=== PATIENT | female | born 1930 | race African-American/Black ===

== ENCOUNTER 2019-12-18 17:23 | Emergency (ER) | payer SELFPAY ==
[~2019-12-18] VITALS: Ht 160 cm; Wt 34.0 kg
[~2019-12-18 17:23] MED LIST: CALCIUM GLUCONATE 10% 1000 MG/10 ML VIAL ONE; EPINEPHrine PFS 0.1 MG/ML SYR IVP ONE
--- NOTE | 2019-12-18 17:23 | NUR ---
CPR INITIATED, SEE CODE BLUE SHEET
--- NOTE | 2019-12-18 17:23 | NUR ---
1721---Patient CECELIA in full arrest with CPR in progress, transferred to bed 10. CPR continued by [facility] staff. Dr. Evans, RT and RN evaluating the patient at bedside.
--- NOTE | 2019-12-18 17:25 | NUR ---
PT WAS IN [employer] IN CAR WITH FAMILY WHO WITNESSED PATIENT SLUMP OVER AND DIALED 911
--- NOTE | 2019-12-18 17:49 | NUR ---
Santi Valencia--son in law [phone]
--- NOTE | 2019-12-18 18:02 | NUR ---
[employer] CONTACTED, THEY WILL NOT PURSUE [phone]
--- NOTE | 2019-12-18 18:04 | NUR ---
MARKETING RESEARCHER CONTACTED, THEY WILL RECONTACT
--- NOTE | 2019-12-18 19:15 | NUR ---
RECIEVED REPORT FROM ZANDRA LAY. WILL CONT CARE AT THIS TIME.
--- NOTE | 2019-12-18 19:19 | NUR ---
SPOKE WITH LANDON FROM [facility] OFFICE, SHE STATES SHE CANNOT PROCEED WITH CASE WITHOUT ANY "NEXT OF KIN" OR FAMILY INFORMATION. SHE WAS INSTRUCTED TO REACH OUT TO SON-IN-LAW, INFORMATION WAS PROVIDED. WILL RE-CONTACT
--- NOTE | 2019-12-18 19:45 | NUR ---
CONTACTED Santi Valencia--son in law ([phone]) 3X OVER THE PHONE AND NO ANSWER. LEFT VOICEMAIL TO CALL BACK.
--- NOTE | 2019-12-18 21:07 | NUR ---
Santi Valencia--son in law CALLED BACK, SANTI SAYS HE IS UNABLE TO GET A HOLD OF ANY FAMILY MEMBERS FROM HIS SIDE AND HIS IS UNFORUTNATELY IN THE [facility] AT [facility] D/T STROKE AND HER RELATION TO THE PT IS THATS HER DAUGHTER. DAUGHTER IS UNABLE TO COMMUNICATE D/T HAVING A STROKE. NO OTHER CONTACT INFO TO BE REACHED FOR DECSION MAKING OR NEXT OF KIN AT THIS TIME. SANTI SAID HES GOING TO TRY AND CONTACT GRANDSON TO SEE IF THERES ANYONE HE CAN FIND TO MAKE DECISIONS.
--- NOTE | 2019-12-18 21:22 | NUR ---
handed off information to [employer], Shalini. all resources exhausted and he stated will try to retrieve more information from the son in law.
--- NOTE | 2019-12-18 21:42 | NUR ---
Called Son In Law [phone], spoke to him. Ask Son In Law if pt has another family members who can help to take care of the diceased patient; Son In Law stated that only the can do it, but the is in [facility] and cannot give any information at this time. Son In Law stated there is family member lives in [place], and Son In Law does not have any contact information. Son In Law is a little bit angry, and stated not to call him all the time because only the can give the information
--- NOTE | 2019-12-18 21:56 | NUR ---
s/w Sheriff Robles, stated Sales And Marketing Engineer will be giving a call back.
--- NOTE | 2019-12-18 22:18 | NUR ---
s/w Christina, Currency Counter. told her that we have tried all resources and tried contacting the son-in-law and that he would not release any contact information regarding family members of the . Christina stated she will contact her sergeant regarding this case to see what they could do. stated they will call back.
--- NOTE | 2019-12-18 23:18 | NUR ---
Mary Valencia, Daughter
--- NOTE | 2019-12-18 23:18 | NUR ---
s/w Radha Vasquezer, cherry to [place] [facility]
--- NOTE | 2019-12-18 23:36 | NUR ---
attempted to call daughter x 2, no answer, left voicemail .
--- NOTE | 2019-12-19 00:19 | NUR ---
body placed in freezer. pt chart handed off to supervisor type photography,
--- NOTE | 2019-12-19 08:05 | NUR ---
CALL PLACE TO SHAUNNA IS/IT PROJECT MANAGER, FOR ADVISED, SHAUNNA GAVE MU NUMBER OF [facility], WILL FOLLOW [phone]
--- NOTE | 2019-12-19 10:48 | NUR ---
CALL PLACE TO SON IN LAW [phone], LEAVE MESSAGE TO CALL US BACK REGARDING MORTUARY.
--- NOTE | 2019-12-19 10:57 | NUR ---
CALL PLACE ALSO TO NUMBER [phone]
--- NOTE | 2019-12-19 10:58 | NUR ---
CALL PLACE TO [phone] PHONE DISCONNECTED.
--- NOTE | 2019-12-19 11:01 | NUR ---
CALL PLACE ALSO TO HELENAUNDREA OLIVAS DAUGHTER [phone] NO ANSWER
--- NOTE | 2019-12-19 11:07 | NUR ---
ABLE TO TALK TO TALK TO SON IN LAW ,ASKING PERMISSION IF I CAN SEND THE BODY TO [facility] OR OTHER MORTUARY, PER SON IN LAW HE CANNOT DECIDE ON THAT AND THAT HE WILL CALL ME BACK TO GET SOME INFORMATION. I ALSO ASK FOR OTHER FAMILY NAME AND NUMBER.
--- NOTE | 2019-12-19 12:21 | NUR ---
TALK TO SON IN LAW, HE SAID THAT STILL HE HAS NO INFORMATION REGARDING THE FAMILY OF THE PATIENT FROM [place], HIS IS IN [place] ICU AND HAD STROKE AND NOT IN GOOD STATE OF MIND, PER SON IN LAW PATIENT JUST CAME BACK FROM [place] YESTERDAY. HE SAID CALL THE GUSSET MAKER AND DO WHAT YOU NEED TO DO.
--- NOTE | 2019-12-19 12:27 | NUR ---
LEFT MESSAGE TO BRETT PRINGLE [facility] FOR ASSISTANCE,
--- NOTE | 2019-12-19 12:28 | NUR ---
LEFT MESSAGE TO SHAUNNA INDUSTRIAL ENERGY ENGINEER TO FOLLOW UP WITH [facility].
--- NOTE | 2019-12-19 12:38 | NUR ---
CALL PLACE TO LESLIE DEL ANGEL TALKED TO CESAR TO SUPERVISOR IRRIGATION THE BODY, PER CESAR SHE WILL GET IN TOUCH WITH THE FAMILY FIRST AND WILL LET ME KNOW.
--- NOTE | 2019-12-19 13:05 | NUR ---
TALKED TO VIOLETTE, GRAND DAUGHTER, , I GAVE HER THE NUMBER OF [facility] AND SHE WILL CALL US BACK.
--- NOTE | 2019-12-19 15:03 | NUR ---
TALKED TO VIOLETTE, SHE SAID THE MORTUARY WILL BE [facility] [phone], I CALL [facility] I SPOKE TO CHANNEL, SHE WILL CALL ME BACK WHEN BODY CAN BE STITCHING MACHINE OPERATOR.
--- NOTE | 2019-12-19 15:06 | NUR ---
CALL PLACE TO [facility] OFFICE, MADE AWARE WE WERE ABLE TO GET IN TOUCH WITH FAMILY , NO NEED OF FOLLOW UP.
--- NOTE | 2019-12-19 17:40 | NUR ---
talked to channel, she said she will call us back for the ETA for medicinal plant picker of body, will endorsed to incoming shift
--- NOTE | 2019-12-19 20:46 | NUR ---
BODY PICKED UP BY [facility] AT THIS TIME, SECURITY ACCOMPANIED MORTICIAN AT THE TRAILER TO CHILLER TENDER THE BODY. UPPER AND LOWER DENTURES AND BRACELET ENDORSED TO THE MORTICIAN..
== END 2019-12-18 17:28 | disposition expired ==
LOC: MED 17:23 → EDBD 17:23 → EDSEX 17:23 → MED 17:28
DX: I46.9 Cardiac arrest, cause unspecified (principal); R40.4 Transient alteration of awareness
CPT/HCPCS: 31500; 92950; 99285; J0171; J0610; 99283